=== PATIENT | male | born 1945 | race Caucasian/White ===

== ENCOUNTER → 2017-03-17 | Outpatient (CLI) | payer MEDICARE, OTHER ==
--- NOTE | 2017-03-17 15:07 | REP ---
Maxillofacial CT study without contrast: History: History of nasal polyp. Left maxillary sinus. Poor sense of smell. Technique: Helical scanning is acquired and 3 mm axial images are reformatted. Coronal multiplanar re-formation images are generated and reviewed. CT findings: There is vascular calcification in the distal carotid arteries bilaterally. No intraorbital abnormality is seen. The paranasal sinuses are clear bilaterally. No nasal polyp is seen. Nasal septum is not deviated. The nasal turbinate and soft tissues are symmetric. Visualized intracranial structures are unremarkable. Impression: Vascular calcification. Otherwise negative maxillofacial CT study. No evidence of paranasal sinus disease or nasal polyp. Signed by Jc Ku MD 03/17/2017 05:44 P
== END ==
LOC: M RAD 13:08
PROVIDERS: ATTEND Otolaryngology
DX: R43.8 Other disturbances of smell and taste (principal)

== ENCOUNTER → 2019-03-10 | Outpatient (REF) | LOC: M LAB LCGH 09:29 | PROVIDERS: ATTEND Physician Assistant | DX: D48.5 Neoplasm of uncertain behavior of skin (principal) ==

== ENCOUNTER → 2019-04-19 | Outpatient (CLI) | payer MEDICARE, OTHER ==
--- NOTE | 2019-04-20 08:58 | REP ---
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 The patient is status post recent skin biopsy of the scalp. COMPARISONS: Comparison maxillofacial CT study March 17, 2017. No other comparison imaging. A report from a soft tissue neck CT study dated April 06, 2019 describes a mild asymmetrical thickening of the wall of the left pharynx. TECHNIQUE: 49 minutes following the intravenous injection of a 8.42 mCi dose of F-18 FDG, three-dimensional PET scintigraphy is acquired from the skull vertex to the proximal thighs. Triplanar noncontrast CT scanning is acquired through the same anatomic range for attenuation correction, and image registration with scan parameters optimized to minimize radiation exposure to the patient. PET scintigraphy and CT datasets were fused and displayed on a workstation with multiplanar and projection display capability. PET/CT FINDINGS: There is a mildly hypermetabolic focus in the scalp at the midline at the vertex at the uppermost extent of the imaging field of view. This is only visible on one axial PET/ CT slice. Maximum standard uptake value here is 3.96. There is a small corresponding soft tissue nodule which measures 1.6 cm in greatest right to left dimension. No other abnormal hypermetabolic focus of dermal or subcutaneous uptake is seen in the head and neck soft tissues. No abnormal guille hypermetabolic uptake is appreciated. No intracranial abnormality is appreciated. There is vascular calcification in the carotid arteries bilaterally. There is no abnormal hypermetabolic uptake in the oropharynx on either side. No abnormal hypermetabolic uptake is seen within the chest. No abnormal hypermetabolic uptake is seen within the abdomen or pelvis. There is left colonic diverticulosis without CT evidence of diverticulitis. Prostate gland is mildly enlarged. PET scintigraphy images are otherwise unremarkable. IMPRESSION: There is a mildly hypermetabolic dermal nodule at the vertex in the midline scalp seen on the uppermost cut in the imaging field of view. Otherwise negative PET scintigraphy. Electronically Signed by Jc Ku MD 04/20/2019 11:16 A
== END ==
LOC: M PLARAD 13:23
PROVIDERS: ATTEND Internal Medicine Cardiovascular Disease
DX: R07.0 Pain in throat (principal); C44.42 Squamous cell carcinoma of skin of scalp and neck
CPT/HCPCS: 78816; A9552

== ENCOUNTER → 2024-01-13 | Outpatient (CLI) | payer MEDICARE, OTHER | LOC: M WHC 13:01 | PROVIDERS: ATTEND Physician Assistant | DX: I65.23 Occlusion and stenosis of bilateral carotid arteries (principal) ==

== ENCOUNTER → 2025-01-16 | Outpatient (CLI) | payer MEDICARE, OTHER | LOC: M RAD 11:21 | PROVIDERS: ATTEND Physician Assistant | DX: I65.23 Occlusion and stenosis of bilateral carotid arteries (principal) ==